=== PATIENT | female | born 1985 | race Caucasian/White ===

== ENCOUNTER 2018-10-21 14:24 | Observation (INO) | payer MEDICAID ==
[~2018-10-21] VITALS: Ht 157.5 cm; Wt 54.0 kg
[~2018-10-21 14:24] MED LIST: BENADRYL
[2018-10-21] MEDS ORDERED: ACETAMINOPHEN 500MG TABLET PO NR (15:15)
[2018-10-21] MEDS ORDERED: LACTATED RINGERS 1,000 ML IV SCH (15:15)
[2018-10-21 15:35] LABS: CLARITY URINE CLEAR (CLEAR); COLOR URINE YELLOW (YELLOW); KETONES URINE 1+ (NEGATIVE); LEUKOCYTE ESTERASE URINE TRACE (NEGATIVE); NITRITE URINE NEGATIVE (NEGATIVE); OCCULT BLOOD URINE NEGATIVE (NEGATIVE); PROTEIN URINE NEGATIVE (NEGATIVE); SPECIFIC GRAVITY URINE 1.018 (1.005-1.030); UROBILINOGEN URINE 0.2 E.U./dL (0.2-1.0)
== END 2018-10-21 16:29 | disposition home or self-care (01) ==
LOC: 8 EST LDRP 14:24
PROVIDERS: ADMIT Obstetrics & Gynecology; ATTEND Obstetrics & Gynecology
DX: O26.892 Other specified pregnancy related conditions, second trimester (principal); R10.30 Lower abdominal pain, unspecified; M54.5 Low back pain; N89.8 Other specified noninflammatory disorders of vagina; Z3A.22 22 weeks gestation of pregnancy
CPT/HCPCS: 81003; 99281; G0378; 96360